=== PATIENT | female | born 1975 | race Asian ===

== ENCOUNTER 2016-06-23 20:40 | Emergency (ER) | payer BC ==
[~2016-06-23] VITALS: Ht 147.3 cm; Wt 54.0 kg
[2016-06-23 21:38] VITALS: BP 143/62
== END 2016-06-24 00:20 | disposition home or self-care (01) ==
LOC: ER 21:03
DX: S61.011A Laceration without foreign body of right thumb without damage to nail, initial encounter (principal); Z88.6 Allergy status to analgesic agent; W26.8XXA Contact with other sharp object(s), not elsewhere classified, initial encounter; Y93.89 Activity, other specified; Y92.89 Other specified places as the place of occurrence of the external cause; Y99.9 Unspecified external cause status
CPT/HCPCS: A4606; A6402; Z7610